=== PATIENT | male | born 1955 | race Caucasian/White ===

== ENCOUNTER → 2018-09-18 | Outpatient (CLI) | payer MEDICARE ==
[~2018-09-18] MED LIST: ASPI325T17 PO; BUPR100T11 PO; BUPR100T8 PO; EZET10TA18 PO; LISI1TAB5 PO; OMEP40CA6 PO; PREG150C PO
[2018-09-18 09:58] LABS: CALCIUM 8.8 mg/dL (8.5-10.1); CHLORIDE 108 mmol/L (98-107)
[2018-09-18 10:04] LABS: ALANINE AMINOTRANSFERASE 60 U/L (12-78); ALKALINE PHOSPHATASE 69 U/L (45-117); ANION GAP 7 mmol/L (5-15); BILIRUBIN,TOTAL 0.8 mg/dL (0.2-1.0); CREATININE 1.07 mg/dL (0.7-1.3); TOTAL PROTEIN 7.7 g/dL (6.4-8.2)
== END | disposition home or self-care (01) ==
LOC: STAR 08:10
PROVIDERS: ATTEND Thoracic Surgery (Cardiothoracic Vascular Surgery)
DX: Z01.818 Encounter for other preprocedural examination (principal); K43.9 Ventral hernia without obstruction or gangrene
CPT/HCPCS: 36415; 80053; 93005

== ENCOUNTER 2018-10-04 06:59 | Day surgery (SDC) | payer MEDICARE ==
[~2018-10-04] VITALS: Ht 167.6 cm; Wt 97.6 kg
[~2018-10-04 06:59] MED LIST changes: +BUPIVACAINE/PF-EPI 0.5% 1:200K ONE
[2018-10-04] MEDS ORDERED: LACTATED RINGERS 1,000 ML IV SCH ×2 (07:25→09:52)
[2018-10-04] MEDS ORDERED: SCOPOLAMINE PATCH, 1.5MG PATCH.TD72 TD ONE (07:30)
[2018-10-04] MEDS ORDERED: GABAPENTIN 300 MG CAPSULE PO ONE (07:30)
[2018-10-04] MEDS ORDERED: ACETAMINOPHEN 500 MG TABLET PO ONE (07:30)
[2018-10-04 07:40] VITALS: BP 124/87
[2018-10-04] MEDS ORDERED: MIDAZOLAM 1 MG/ML, 2ML ONE (08:15)
[2018-10-04] MEDS ORDERED: FENTANYL PF 250 MCG/5ML ONE (08:15)
[2018-10-04] MEDS ORDERED: PROPOFOL 10 MG/ML, 20ML ONE (08:51)
[2018-10-04] MEDS ORDERED: SUCCINYLCHOLINE 20 MG/ML, 10ML ONE (08:51)
[2018-10-04] MEDS ORDERED: ROCURONIUM 10 MG/ML,10ML ONE (08:51)
[2018-10-04] MEDS ORDERED: ONDANSETRON 2MG/ML, 2ML ONE (08:51)
[2018-10-04] MEDS ORDERED: DEXAMETHASONE 4 MG/ML, 1ML ONE (08:51)
[2018-10-04] MEDS ORDERED: GLYCOPYRROLATE 0.2MG/1ML, 5ML ONE (08:51)
[2018-10-04] MEDS ORDERED: CEFAZOLIN 1,000 MG ONE (08:51)
[2018-10-04] MEDS ORDERED: NEOSTIGMINE 1 MG/ML, 10ML ONE (08:51)
[2018-10-04] MEDS ORDERED: OXYcodone 5 MG/5 ML ORAL.SOL UDC PO PRN (10:00)
[2018-10-04] MEDS ORDERED: morphine SULFATE 10 MG/ML, 1ML IVPush PRN (10:00)
[2018-10-04] MEDS ORDERED: KETOROLAC 30 MG/1 ML IVPush PRN (10:00)
[2018-10-04] MEDS ORDERED: PROMETHAZINE 25 MG/ML, 1ML IV PRN (10:00)
[2018-10-04] MEDS ORDERED: ONDANSETRON 2MG/ML, 2ML IVPush PRN ×2 (10:00)
[2018-10-04] MEDS ORDERED: METOCLOPRAMIDE 5 MG/ML, 2ML IV PRN (10:00)
[2018-10-04] MEDS ORDERED: ALBUTEROL SULFATE 2.5 MG/3 ML NPPB PRN (10:00)
[2018-10-04] MEDS ORDERED: MEPERIDINE/PF 25MG/0.5ML IVPush PRN (10:00)
[2018-10-04] MEDS ORDERED: KETOROLAC 30 MG/1 ML IV PRN (10:00)
[2018-10-04] MEDS ORDERED: HYDROcodone/APAP 5/325 TABLET PO PRN (10:00)
[2018-10-04] MEDS ORDERED: HYDROmorphone 1 MG/ML, 1ML INJ IV PRN (10:00)
[2018-10-04] MEDS ORDERED: hydrALAzine 20 MG/ML, 1ML IV PRN (10:00)
[2018-10-04] MEDS ORDERED: LABETALOL 5MG/ML, 20ML IV PRN (10:00)
[2018-10-04] MEDS ORDERED: KETOROLAC 30 MG/1 ML ONE (10:02)
[2018-10-04] MEDS ORDERED: OXYcodone 5 MG/5 ML ORAL.SOL UDC ONE (10:02)
[2018-10-04] MEDS: FENTANYL PF 100 MCG/2ML IV PRN ×2 (10:02→10:09)
[2018-10-04] MEDS ORDERED: FENTANYL PF 100 MCG/2ML ONE (10:02)
[2018-10-04] MEDS ORDERED: ALBUTEROL SULFATE 2.5 MG/3 ML ONE (10:08)
[2018-10-04] MEDS ORDERED: HYDROmorphone 2 MG/ML, 1ML ONE (10:17)
== END 2018-10-04 12:20 | disposition home or self-care (01) ==
LOC: OUT 06:59
PROVIDERS: ATTEND Thoracic Surgery (Cardiothoracic Vascular Surgery)
DX: K43.6 Other and unspecified ventral hernia with obstruction, without gangrene (principal); F32.9 Major depressive disorder, single episode, unspecified; K21.9 Gastro-esophageal reflux disease without esophagitis; I10 Essential (primary) hypertension; F17.210 Nicotine dependence, cigarettes, uncomplicated; Z98.890 Other specified postprocedural states; Z72.89 Other problems related to lifestyle
CPT/HCPCS: 49561; 49568; 94640; C1781; J0330; J0690; J1100; J1170; J1885; J2250; J2405; J2704; J2710; J3010; J7613